=== PATIENT | male | born 1990 | race African-American/Black ===

== ENCOUNTER 2018-09-28 09:48 | Emergency (ER) | payer MEDICAID ==
[2018-09-28 09:52] VITALS: BMI 27.4
[2018-09-28] MEDS ORDERED: CLEOCIN HCL300 MG PO (10:40)
[2018-09-28 11:15] VITALS: BP 132/89
== END 2018-09-28 11:16 | disposition home or self-care (01) ==
LOC: D.ER 09:48
DX: I80.8 Phlebitis and thrombophlebitis of other sites (principal)

== ENCOUNTER 2018-12-07 20:05 | Emergency (ER) | payer MEDICAID ==
[~2018-12-07] VITALS: Ht 170.2 cm; Wt 88.6 kg
[~2018-12-07 20:05] MED LIST: CLEOCIN HCL300 MG PO
[2018-12-07 20:12] VITALS: BP 114/62; Ht 170.2 cm; Wt 88.6 kg
== END 2018-12-07 20:27 | disposition left against medical advice (07) ==
LOC: D.ER 20:05
DX: I80.8 Phlebitis and thrombophlebitis of other sites (principal)